=== PATIENT | male | born 1995 | race Caucasian/White ===

== ENCOUNTER 2023-07-08 18:47 | Emergency (ER) | payer MEDICAID ==
[~2023-07-08] VITALS: Ht 182.9 cm; Wt 75.2 kg
[2023-07-08] MEDS ORDERED: CEPH-585 PO (20:02)
[2023-07-08 20:54] VITALS: BP 110/80; PULSE 81; RESP 16; TEMP 98; O2SAT 100
== END 2023-07-08 20:56 | disposition home or self-care (01) ==
LOC: ER 18:48
DX: L03.114 Cellulitis of left upper limb (principal); L03.113 Cellulitis of right upper limb; L03.115 Cellulitis of right lower limb; L03.116 Cellulitis of left lower limb
CPT/HCPCS: 99283